=== PATIENT | female | born 1995 | race Caucasian/White ===

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

== ENCOUNTER 2017-01-23 10:38 | Emergency (ER) | payer MEDICAID ==
[~2017-01-23] VITALS: Ht 154.9 cm; Wt 54.0 kg
--- NOTE | 2017-01-23 10:41 | NUR ---
Unable to locate patient for triage. Patient reported to be in bathroom.
[2017-01-23 10:45] VITALS: BP_SYST 125
--- NOTE | 2017-01-23 10:45 | NUR ---
Patient to ER bed 6 to gown for evaluation. Side rails up. Report receive from Ezekiel REYES..
--- NOTE | 2017-01-23 11:00 | NUR ---
ER at bedside examining patient.
--- NOTE | 2017-01-23 11:41 | NUR ---
Patient transported to radiology via ambulation, accompanied by rad staff.
[2017-01-23] MEDS ORDERED: ONDANSETRON 4 MG ODT TAB PO ONE (11:45)
[2017-01-23] MEDS ORDERED: IBUPROFEN 800 MG TABLET PO ONE (11:45)
--- NOTE | 2017-01-23 11:48 | NUR ---
Returned from radiology, back to [facility].
[2017-01-23 12:08] LABS: BASOPHILS % (AUTO) 0.3 % (0.0-2.0); EOSINOPHILS # (AUTO) 0.1 K/uL (0.0-0.4); EOSINOPHILS % (AUTO) 1.2 % (0.0-4.0); LYMPHOCYTES # (AUTO) 1.2 K/uL (1.0-5.5); LYMPHOCYTES % (AUTO) 10.6 % (20.5-51.5); MEAN CORPUSCULAR HEMOGLOBIN 28 pg (27-31); MEAN CORPUSCULAR HGB CONC 33 % (32-36); MEAN CORPUSCULAR VOLUME 87 fL (79.0-98.0); MONOCYTES # (AUTO) 0.6 K/uL (0.0-1.0); MONOCYTES % (AUTO) 5.1 % (1.7-9.3); NEUTROPHILS # (AUTO) 9.4 K/uL (1.8-7.7); NEUTROPHILS % (AUTO) 82.8 % (40.0-70.0); PLATELET COUNT (AUTO) 337 K/uL (130-430); RED BLOOD CELL COUNT(AUTO) 4.96 MIL/uL (4.2-6.2); RED CELL DISTRIBUTION WIDTH 11.4 % (9.0-15.0); WHITE BLOOD COUNT (AUTO) 11.3 K/uL (4.5-11.0)
[2017-01-23 12:20] LABS: INR 1.1 (0.8-1.2); PROTHROMBIN TIME 10.7 SECS (9.5-12.5)
--- NOTE | 2017-01-23 12:20 | NUR ---
Pt medicted tolerated well.
[2017-01-23 12:21] LABS: CALCIUM 9.2 mg/dL (8.4-11.0); CREATININE 0.59 mg/dL (0.55-1.30)
[2017-01-23 12:25] LABS: ALBUMIN 4.4 g/dL (3.4-4.8); TOTAL BILIRUBIN 0.5 mg/dL (0.0-1.0)
[2017-01-23 12:28] LABS: BILIRUBIN,URINE NEGATIVE (NEGATIVE); BLOOD, URINE 1+ (NEGATIVE); CLARITY/URINE CLEAR (CLEAR); COLOR,URINE YELLOW (YELLOW); GLUCOSE,URINE NEGATIVE (NEGATIVE); KETONES,URINE NEGATIVE (NEGATIVE); LEUKOCYTE ESTERASE ,URINE NEGATIVE (NEGATIVE); NITRITE, URINE NEGATIVE (NEGATIVE); PH,URINE 5.5 (5.0-8.0); PROTEIN URINE NEGATIVE (NEGATIVE); UROBILINOGEN,URINE 0.2 (0.2-1.0)
[2017-01-23 12:41] LABS: BACTERIA,URINE FEW /HPF (None Seen); MUCUS,URINE 1+ /LPF (None Seen); WBC,URINE 0-3 /HPF (0-3)
--- NOTE | 2017-01-23 13:14 | NUR ---
Patient given written and verbal discharge instructions and verbalizes understanding. ER MD discussed with patient the results and treatment provided. Patient in stable condition. ID arm band removed. Rx of Ibuprofen, Zofran given. Patient educated on pain management and to follow up with PMD. Pain Scale 0/10. Opportunity for questions provided and answered.
== END 2017-01-23 13:17 | disposition home or self-care (01) ==
LOC: SED 10:38
DX: R10.84 Generalized abdominal pain (principal); R11.10 Vomiting, unspecified; R19.7 Diarrhea, unspecified; J45.909 Unspecified asthma, uncomplicated; Z90.89 Acquired absence of other organs
CPT/HCPCS: 36415; 74000; 80053; 81000; 81025; 82150; 83690; 84703; 85025; 85610; 85730; 99285; Q0162